=== PATIENT | female | born 1985 | race Two or more races ===

== ENCOUNTER 2018-06-25 11:00 | Emergency (ER) | payer OTHER ==
[2018-06-25 11:12] VITALS: BP 107/65; PULSE 82; TEMP 98.1; BMI 21.6
[2018-06-25] MEDS ORDERED: CYCLOBENZAPRINE HCL 10 MG TABLET (FP) PO ONE (11:47)
[2018-06-25] MEDS ORDERED: CYCLOBENZAPRINE HCL 10 MG TABLET (FP) ONE (11:51)
--- NOTE | 2018-06-25 12:02 | PDOC ---
History of Present Illness - General Chief Complaint: Back Pain Stated Complaint: BACK PAIN History Source: Patient Exam Limitations: No Limitations - History of Present Illness Initial Comments: 06/25/18 11:43 Patient is a 32 year old female with past complaining lower back pain x 2 days. States she then over to pick some of her car, not a heavy object , and develop sudden onset of pain across the lower back which has been persistent, burning, nonradiating, constant 10/10 since. Denies any bowel or bladder incontinence, numbness or tingling in the legs. No prior history of this type of pain, no injury States unable to sleep due to the pain. States about 1 hour ago took Naproxen and a muscle relaxant without relief. Deneis nausea, vomiting, dysuria PMD: Dr. Rodas PMHX: as above PSOCHX: neg etoh, drug, cig ALL: NKDA GENERAL/CONSTITUTIONAL: [No fever or chills. No weakness. No weight change.] HEAD, EYES, EARS, NOSE AND THROAT: [No change in vision. No ear pain or discharge. No sore throat.] CARDIOVASCULAR: [No chest pain or shortness of breath.] RESPIRATORY: [No cough, wheezing, or hemoptysis.] GASTROINTESTINAL: [No nausea, vomiting, diarrhea or constipation. No rectal bleeding.] GENITOURINARY: [No dysuria, frequency, or change in urination.] MUSCULOSKELETAL: [No joint or muscle swelling or pain. No neck, (+) back pain.] SKIN AND BREASTS: [No rash or easy bruising.] NEUROLOGIC: [No headache, vertigo, loss of consciousness, or loss of sensation.] PSYCHIATRIC: [No depression or anxiety.] ENDOCRINE: [No increased thirst. No abnormal weight change.] HEMATOLOGIC/LYMPHATIC: [No anemia, easy bleeding, or history of blood clots.] ALLERGIC/IMMUNOLOGIC: [No hives or skin allergy. No latex allergy.] GENERAL: [The patient is awake, alert, and fully oriented, in no acute distress. ] HEAD: [Normal with no signs of trauma.] EYES: [Pupils equal, round and reactive to light, extraocular movements intact, sclera anicteric, conjunctiva clear.] ENT: [Ears normal, nares patent, oropharynx clear without exudates. Moist mucous membranes.] NECK: [Normal range of motion, supple without lymphadenopathy, JVD, or masses.] LUNGS: [Breath sounds equal, clear to auscultation bilaterally. No wheezes, and no crackles.] HEART: [Regular rate and rhythm, normal S1 and S2 without murmur, rub.] ABDOMEN: [Soft, nontender, normoactive bowel sounds. No guarding, no rebound. No masses.] BACK: tenderness mid line spine and b/l paraspinal EXTREMITIES: [Normal range of motion, no edema. No clubbing or cyanosis. No cords, erythema, or tenderness.] NEUROLOGICAL: [Cranial nerves II through XII grossly intact. Normal speech, normal gait.] PSYCH: [Normal mood, normal affect.] SKIN: [Warm, Dry, normal turgor, no rashes or lesions noted.] Past History - Past Medical History Allergies/Adverse Reactions: Allergies Allergy/AdvReac Type Severity Reaction Status Date / Time No Known Allergies Allergy Verified 06/25/18 11:13 Home Medications: Ambulatory Orders Cephalexin [Keflex] 500 mg PO TID #7 capsule 06/25/18 Oxycodone HCl/Acetaminophen [Percocet 5/325 -] 1 tab PO Q4H #10 tablet MDD 6 08/12 Asthma: No Cancer: No Cardiac Disorders: No COPD: No Diabetes: No HTN: No Seizures: No Thyroid Disease: No - Suicide/Smoking/Psychosocial Hx Smoking Status: No Smoking History: Never smoked Have you smoked in the past 12 months: No Number of Cigarettes Smoked Daily: 0 Hx Alcohol Use: No Drug/Substance Use Hx: No Substance Use Type: None Hx Substance Use Treatment: No *Physical Exam - Vital Signs Last Vital Signs Temp Pulse Resp BP Pulse Ox 98.1 F 82 17 107/65 97 06/25/18 11:11 06/25/18 11:11 06/25/18 11:11 06/25/18 11:11 06/25/18 11:11 Moderate Sedation - Procedure Monitoring Vital Signs: Procedure Monitoring Vital Signs Temperature 98.1 F 06/25/18 11:11 Pulse Rate 82 06/25/18 11:11 Respiratory Rate 17 06/25/18 11:11 Blood Pressure 107/65 06/25/18 11:11 O2 Sat by Pulse Oximetry (%) 97 06/25/18 11:11 Medical Decision Making - Medical Decision Making 06/25/18 11:43 Patient is a 32 year old female with past complaining lower back pain x 2 days. DDX: uti, back strain, lumbar spine, UA, urine preg percocet labs reviewed noted to have 73 wbc consistent with UTI lumbar xray neg for acute process Keflex 500mg po given 1300 Patient states pain is improved with percocet now 11/02 I discussed the physical exam findings, ancillary test results and final diagnoses with the patient. I answered all of the patient's questions. The patient was satisfied with the care received and felt comfortable with the discharge plan and treatment plan. The Patient agrees to follow up with the primary care physician within 24-72 hours. *DC/Admit/Observation/Transfer Diagnosis at time of Disposition: UTI (urinary tract infection) Qualifiers: Urinary tract infection type: site unspecified Hematuria presence: with hematuria Qualified Code(s): N39.0 - Urinary tract infection, site not specified - Discharge Dispostion Disposition: HOME Condition at time of disposition: Stable - Prescriptions Prescriptions: Cephalexin [Keflex] 500 mg PO TID #7 capsule Oxycodone HCl/Acetaminophen [Percocet 5/325 -] 1 tab PO Q4H #10 tablet MDD 6 - Referrals Referrals: Tashi Rodas MD [Primary Care Provider] - - Patient Instructions Printed Discharge Instructions: DI for Urinary Tract Infection (UTI) Additional Instructions: Your Discharge Instructions: You must call primary care physician within 24 hours to arrange follow-up. Return to the Emergency Department with any new, persistent or worsening symptoms, for fever, chills, SOB, dizziness or any other concerning changes that may occur. - Post Discharge Activity
[2018-06-25 12:21] LABS: URINE APPEARANCE SLCLOUDY; URINE BILIRUBIN NEGATIVE (<2.0 mg/dL); URINE COLOR STRAW; URINE GLUCOSE (UA) NEGATIVE (NEGATIVE); URINE KETONE NEGATIVE (NEGATIVE); URINE LEUK ESTERASE 3+ (NEGATIVE); URINE NITRITE NEGATIVE (NEGATIVE); URINE PROTEIN NEGATIVE (NEGATIVE); URINE UROBILINOGEN NEGATIVE mg/dL (0.2-1.0)
[2018-06-25 12:28] LABS: EPI CELLS RARE /HPF (FEW); URINE BACTERIA RARE /hpf (NONE SEEN); URINE MUCUS RARE
[2018-06-25] MEDS ORDERED: CEPHALEXIN MONOHYDRATE 500 MG CAPSULE (UD) PO ONE (12:51)
[2018-06-25] MEDS ORDERED: CEPHALEXIN MONOHYDRATE 500 MG CAPSULE (UD) ONE (13:09)
== END 2018-06-25 13:24 | disposition home or self-care (01) ==
LOC: JERFT 11:00
DX: N39.0 Urinary tract infection, site not specified (principal)
CPT/HCPCS: 72100-TC-FY; 81003; 81015; 84703; 87086; 99281-25

== ENCOUNTER 2018-11-13 12:43 | Emergency (ER) | payer OTHER ==
[2018-11-13 12:54] VITALS: BMI 22.1
--- NOTE | 2018-11-13 12:56 | PDOC ---
History of Present Illness - General Chief Complaint: Vaginal Bleeding Stated Complaint: VAGINAL BLEED 13WKS PRG Time Seen by Provider: 11/13/18 12:55 History Source: Patient - History of Present Illness Initial Comments: 11/13/18 13:15 The patient is a 32 year old female at a self reported 13 weeks gestation with no reported significant PMH who presents to our ED c/o vaginal bleeding. States she first noted blood on the toilet paper last night when she urinated and again this morning. No associated abdominal cramping, dysuria, fevers/ chills. Ultrasound with no abnormal findings last week. Follows with Dr. Ko. H/o five pregnancies, with 2 SAB. The patient denies chest pain, shortness of breath, abdominal pain, nausea/ vomiting, diarrhea/constipation, fevers/chills. NKDA Surgical: C/S x3 OB-Line Supply: Dr. Ko Past History - Past Medical History Allergies/Adverse Reactions: Allergies Allergy/AdvReac Type Severity Reaction Status Date / Time No Known Allergies Allergy Verified 11/13/18 12:48 Home Medications: Ambulatory Orders NK [No Known Home Medication] 11/13/18 Asthma: No Cancer: No Cardiac Disorders: No COPD: No Diabetes: No HTN: No Seizures: No Thyroid Disease: No - Suicide/Smoking/Psychosocial Hx Smoking Status: No Smoking History: Never smoked Have you smoked in the past 12 months: No Number of Cigarettes Smoked Daily: 0 Hx Alcohol Use: No Drug/Substance Use Hx: No Substance Use Type: None Hx Substance Use Treatment: No Review of Systems - Review of Systems Constitutional: No: Chills, Fever HEENTM: No: Recent change in vision Respiratory: No: Cough, Shortness of Breath Cardiac (ROS): No: Chest Pain, Lightheadedness, Palpitations, Syncope ABD/GI: No: Constipated, Diarrhea, Nausea, Vomiting : Yes: Other (vaginal bleeding). No: Burning, Dysuria *Physical Exam - Vital Signs Last Vital Signs Temp Pulse Resp BP Pulse Ox 97.9 F 82 16 100/60 99 11/13/18 12:46 11/13/18 12:46 11/13/18 12:46 11/13/18 12:46 11/13/18 12:46 - Physical Exam General Appearance: Yes: Nourished, Appropriately Dressed HEENT: positive: Normal Voice, Hearing Grossly Normal Neck: positive: Trachea midline, Supple Respiratory/Chest: positive: Lungs Clear, Normal Breath Sounds Cardiovascular: positive: S1, S2. negative: Edema, Murmur Vascular Pulses: Dorsalis-Pedis (R): 2+, Doralis-Pedis (L): 2+ Female Pelvic Exam: positive: other (dark red blood in vaginal vault - unable to visualize cervical os because of active bleed) Gastrointestinal/Abdominal: positive: Soft. negative: Distended, Guarding, Rebound, Tenderness, Hernia, Mass Musculoskeletal: negative: CVA Tenderness (R), CVA Tenderness (L) Extremity: positive: Normal Capillary Refill, Normal Inspection Integumentary: positive: Normal Color, Dry, Warm Neurologic: positive: Fully Oriented, Alert ED Treatment Course - LABORATORY CBC & Chemistry Diagram: 11/13/18 14:00 Medical Decision Making - Medical Decision Making 11/13/18 13:52 32 year old female at a self reported 13 weeks gestation with vaginal bleeding. H/o multiple spontaneous abortions. VS unremarkable. Frontal diagnosis: SAB/ Threatened AB, also consider ectopic or ovarian cyst hemmorhage though the latter are less likely. Will obtain bedside US, CBC to evaluate for anemia, check urine for proteinuria. Previous C/S in our institution with Type O Positive - no need to evaluate for [place]. 11/13/18 14:06 Bedside U/S shows IUP with FHR 130's, no subchorionic hemmorhage Labs, UA pendning 11/13/18 16:35 B-HCG c/w 5+ plus Hb 13.2 UA negative for proteinuria - diff pending Patient requesting d/c home. As VSS stable, no active medical emergency, will discharge home. 11/13/18 17:19 Patient contacted by phone - informed of UA results. Counseled again on importance of follow-up evaluation with OB[facility]Line Supply. Clinical Impression: Threatened AB I discussed the physical exam findings, ancillary test results and final diagnoses with the patient. I answered all of the patient's questions. The patient was satisfied with the care received and felt comfortable with the discharge plan and treatment plan. The patient will return to the Emergency Department with any new, persistent or worsening symptoms. *DC/Admit/Observation/Transfer Diagnosis at time of Disposition: Vaginal bleeding - Discharge Dispostion Disposition: HOME Condition at time of disposition: Good Decision to Admit order: No - Referrals Referrals: Mert Banda MD [Primary Care Provider] - - Patient Instructions Printed Discharge Instructions: Threatened Additional Instructions: no intercourse or anything per vagina until bleeding stops. take it easy follow up with your agriscience instructor as scheduled. return for any pain, dizziness or any concerns. your ultrasound shows a live intrauterine today with a normal heart rate and visualized movement. - Post Discharge Activity Forms/Work/School Notes: Back to Work
[2018-11-13] MEDS ORDERED: SODIUM CHLORIDE 0.9% 500 ML INFUS.BAG IV ONE (13:03)
[2018-11-13] MEDS ORDERED: ONDANSETRON 4 MG/2 ML VIAL ONE (14:11)
--- NOTE | 2018-11-13 14:12 | PDOC ---
Attending Attestation - Resident Resident Name: Evette Hilton - ED Attending Attestation I have performed the following: I have examined & evaluated the patient, The case was reviewed & discussed with the resident, I agree w/resident's findings & plan, Exceptions are as noted - HPI HPI: 11/13/18 14:07 32 yo ( 2 prior miscarriages ) here with approx 13 weeks , here with co vaginal bleeding. no c/o lower abd pain. bleeding bright red, noted when wiping. started last night. noted todya while urinating. no f/c follows with dr Hayden - Physicial Exam PE: 11/13/18 14:09 awake alert lungs clear bilatearlly heart rrr no mrg abd soft nontendern nondistended. ext wwp. ( pelvic performed by dr hilton). - Medical Decision Making 11/13/18 14:10 32 yo 13 weeks with vaginal bleeding. differential ectopic less likley prior us shows iup per pt, threatened vs. incomplete ab. plan focused ED us trans-abdominal focused ED ultrasound trans abdominal, indication vag bleeding. evaluate well being. uterus scanned in two planes. heart rate 132 bpm, movement noted. placenta noted, no subchorionic hemorrhage. impression: live IUP fhr 132 bpm. 11/13/18 16:03 11/13/18 16:03 ua negative for uti. will dc home fu with dr. hayden this week. has appt scheduled 3 days from today.
[2018-11-13 14:16] LABS: BASO % 0.3 % (0-2.0); EOS % 3.8 % (0-4.5); HEMATOCRIT 38.4 % (32.4-45.2); HEMOGLOBIN 13.2 GM/dL (10.7-15.3); LYMPH % 24.2 % (8-40); MCH 28.4 pg (25.7-33.7); MCHC 34.3 g/dl (32.0-36.0); MEAN CELL VOLUME 82.9 fl (80-96); MEAN PLT VOLUME 8.4 fl (7.5-11.1); MONO % 7.2 % (3.8-10.2); NEUT % 64.5 % (42.8-82.8); PLATELET COUNT 199 K/MM3 (134-434); RBC 4.63 M/mm3 (3.60-5.2); RDW 13.3 % (11.6-15.6); WHITE BLOOD COUNT 9.6 K/mm3 (4.0-10.0)
[2018-11-13] MEDS ORDERED: ACETAMINOPHEN 650 MG/20.3 ML ORAL SOLUTION (CUPS) ONE (14:46)
[2018-11-13 15:11] LABS: URINE APPEARANCE CLEAR; URINE BILIRUBIN NEGATIVE (NEGATIVE); URINE COLOR YELLOW; URINE GLUCOSE (UA) NEGATIVE (NEGATIVE); URINE KETONE NEGATIVE (NEGATIVE); URINE LEUK ESTERASE NEGATIVE (NEGATIVE); URINE NITRITE NEGATIVE (NEGATIVE); URINE PROTEIN NEGATIVE (NEGATIVE); URINE UROBILINOGEN 0.2 mg/dL (0.2-1.0)
[2018-11-13 15:55] VITALS: BP 117/64; PULSE 68; TEMP 97.7
[2018-11-13 16:16] LABS: URINE RBC 0-3 /hpf (0-4)
[2018-11-13 16:17] LABS: URINE BACTERIA FEW /hpf (NEGATIVE); URINE WBC 0-3 /hpf (0-5)
[2018-11-13] MEDS ORDERED: IBUPROFEN 100 MG/5 ML UNIT DOSE CUPS ONE (16:23)
[2018-11-15 09:41] LABS: ALBUMIN 3.3 g/dl (3.4-5.0); ALK PHOS 52 U/L (45-117); ANION GAP 8 MMOL/L (8-16); BILIRUBIN,TOTAL 0.3 mg/dL (0.2-1); BLOOD UREA NITROGEN 8 mg/dL (7-18); CALCIUM 8.7 mg/dL (8.5-10.1); CHLORIDE 106 mmol/L (98-107); CO2 23 mmol/L (21-32); CREATININE 0.4 mg/dL (0.55-1.3); GLUCOSE,RANDOM 85 mg/dL (74-106); POTASSIUM 3.9 mmol/L (3.5-5.1); SGOT/AST 11 U/L (15-37); SGPT/ALT 15 U/L (13-61); SODIUM 137 mmol/L (136-145); TOT PROT 6.9 g/dl (6.4-8.2)
== END 2018-11-13 16:51 | disposition home or self-care (01) ==
LOC: JER 12:43
PROC: BY49ZZZ Ultrasonography of First Trimester, Single Fetus (ICD-10-PCS; principal; 2018-11-13)
DX: O26.891 Other specified pregnancy related conditions, first trimester (principal); O20.0 Threatened abortion; Z3A.13 13 weeks gestation of pregnancy
CPT/HCPCS: 36415; 76801-TC; 80053; 81003; 81015; 84702; 85025; 99283-25

== ENCOUNTER 2019-05-15 11:50 | Inpatient (IN) | payer OTHER ==
[~2019-05-15 11:50] MED LIST: CITRIC ACID/SODIUM CITRATE 30 ML UNIT-DOSE CUP PO ONE; ELECTROLYTE-148 SOLN 1,000 ML IV ONE; ELECTROLYTE-148 SOLN 1,000 ML IV SCH
[2019-05-15 13:11] VITALS: BMI 26.2
[2019-05-15] MEDS ORDERED: morphine SULFATE/PF 0.5 MG/ML (2cc Syringe - QUVA) ONE (13:47)
[2019-05-15] MEDS ORDERED: PROPOFOL 20 ML ONE (13:48)
--- NOTE | 2019-05-15 13:49 | HP ---
Past Medical History - Primary Care Physician PCP:: Mert Banda - Admission Chief Complaint: 39 weeks, previous c/s , request of repeat c/s, BTL History of Present Illness: 33 yo f g 4 [id number] 39 weeks,with 3 previous c/s , requesting repeat c/s and BTL, aware BTL is permanent, has small failure risks and risks of ectopic . cx clp, vx -3 mi , fhr cat 1, no contraction History Source: Patient Limitations to Obtaining History: No Limitations - Past Medical History ...: 4 ...Para: 3 ...Term: 3 ...: 0 ...Spon : 0 ...Induced : 0 ...Multiple Gestation: 0 ...LMP: 08/06/18 ... Weeks Gestation by Dates: 40.2 ...EDC by Dates: 05/13/19 ...EDC by Sono: 05/20/19 Infectious Disease: Yes: STD's (txed for chalmydia) - Past Surgical History Past Surgical History: Yes: Hx Myomectomy: No Hx Transabdominal Cerclage: No - Smoking History Smoking history: Never smoked Have you smoked in the past 12 months: No Aproximately how many cigarettes per day: 0 - Alcohol/Substance Use Hx Alcohol Use: No - Social History History of Recent Travel: No Home Medications - Allergies Allergies/Adverse Reactions: Allergies Allergy/AdvReac Type Severity Reaction Status Date / Time No Known Allergies Allergy Verified 11/13/18 12:48 - Home Medications Home Medications: Ambulatory Orders Ferrous Sulfate [Iron] 325 mg PO DAILY 04/19/19 Prenat 115/Iron Fum/Folic/Dss [ 19 Tablet] 1 each PO DAILY 04/19/19 Review of Systems - Review of Systems Constitutional: reports: No Symptoms Eyes: reports: No Symptoms HENT: reports: No Symptoms Neck: reports: No Symptoms Cardiovascular: reports: No Symptoms Respiratory: reports: No Symptoms Gastrointestinal: reports: No Symptoms Genitourinary: reports: No Symptoms Breasts: reports: No Symptoms Reported Musculoskeletal: reports: No Symptoms Integumentary: reports: No Symptoms Neurological: reports: No Symptoms Endocrine: reports: No Symptoms Hematology/Lymphatic: reports: No Symptoms Psychiatric: reports: No Symptoms Physical Exam - Maternity Vital Signs: Vital Signs Temperature 98.2 F 05/15/19 12:15 Pulse Rate 84 05/15/19 12:15 Respiratory Rate 20 05/15/19 12:15 Blood Pressure 116/72 05/15/19 12:15 O2 Sat by Pulse Oximetry (%) Constitutional: Yes: Well Nourished, No Distress, Calm Eyes: Yes: WNL, Conjunctiva Clear, EOM Intact HENT: Yes: WNL, Atraumatic, Normocephalic Neck: Yes: WNL, Supple, Trachea Midline Cardiovascular: Yes: WNL, Regular Rate and Rhythm Breast(s): Yes: WNL - Abdominal Exam/OB Fundal Height: 38 Number of Fetuses: Single Presentation: Vertex Contractions: No Intensity: Unaware Monitor Mode: External Heart Rate Location: [facility] Accelerations: Non-Uniform Decelerations: None - Vaginal Exam/OB Vaginal Bleediing: No Speculum Exam: No Dilatation (cm): closed Effacement (%): 0 Amniotic Membrane Status: Intact Presentation: Vertex/Position Station: -3 - Physical Exam Edema: Yes Edema: LLE: Trace, RLE: Trace Deep Tendon Reflex Grade: Normal +2 Psychiatric: Yes: WNL Hemorrhage Risk Assessment - Risk Factors Medium Risk Factors: Yes: Prior , uterine surgery,or multiple laparotomies Risk Score: 1 Risk Level: Medium Risk Problem List - Problems (1) with 39 completed weeks gestation Code(s): Z3A.39 - 39 WEEKS GESTATION OF (2) Previous section complicating Code(s): O34.219 - MATERNAL CARE FOR UNSP TYPE SCAR FROM PREVIOUS DEL (3) Admission for sterilization Code(s): Z30.2 - ENCOUNTER FOR STERILIZATION Assessment/Plan admit for repeat c/s , BTL, risks associated with multiple repeat c/s, bowel, bladder , ureter injury, infection, bleeding , post op complication discussed
[2019-05-15] MEDS ORDERED: SUCCINYLCHOLINE CHLORIDE 200 MG/10 ML SYRINGE ONE (13:54)
[2019-05-15] MEDS ORDERED: LIDO 2%/EPI 1:200000 PRESRVFRE (20 ML SDVIAL) ONE (13:59)
[2019-05-15] MEDS ORDERED: BUPIVACAINE HCL/PF 2.5 MG/ML - 30 ML VIAL IJ ONE (14:05)
[2019-05-15] MEDS ORDERED: ceFAZolin SODIUM 1 GM VIAL ONE (14:35)
[2019-05-15] MEDS ORDERED: OXYTOCIN 10 UNITS/ML VIAL ONE (14:45)
--- NOTE | 2019-05-15 15:35 | PN ---
Progress Note (short form) - Note Progress Note: I assisted Dr. Banda in repeat c/section and tubal sterilization for the ntirety of the case.
[2019-05-15] MEDS ORDERED: OXYTOCIN 20 UNITS in 0.9% NS 20 UNIT/1,000 ML INFUS.BAG IV ONE (15:43)
[2019-05-15] MEDS ORDERED: BENZOCAINE 20% 57 GM BOTTLE TP PRN (16:01)
[2019-05-15] MEDS ORDERED: METHYLERGONOVINE MALEATE 0.2 MG/1 ML AMP IM PRN (16:01)
[2019-05-15] MEDS ORDERED: BENZOCAINE 28 GM HEMORRHOIDAL OINTMENT PR PRN (16:01)
[2019-05-15] MEDS ORDERED: WITCH HAZEL 50% (TUCKS) 40 PAD/JAR PAD TP PRN (16:01)
[2019-05-15] MEDS ORDERED: oxyCODONE HCL 5 MG TABLET PO PRN (16:01)
--- NOTE | 2019-05-15 16:08 | OP ---
Operative Note - Note: Operative Date: 05/15/19 Pre-Operative Diagnosis: 39 weeks, previous c/s , request of repeat c/ s , BTL Operation: repeat LST c/s , BTL Implants: live baby girl 9 , LOP, cord around neck twice Surgeon: Mert Banda Dining Service Supervisor: William Humphreys Anesthesia: Spinal Estimated Blood Loss (mls): 500 Drains & Tubes with Location: baxter Blood Volume Replaced (mls): 0 Operative Report Dictated: Yes
[2019-05-15] MEDS ORDERED: OXYTOCIN 20 UNITS in 0.9% NS 20 UNIT/1,000 ML INFUS.BAG IV SCH (16:15)
[2019-05-15] MEDS ORDERED: DEXTROSE 5%-LACTATED RINGERS 1,000 ML IV SCH (16:15)
[2019-05-15] MEDS ORDERED: IBUPROFEN 800 MG/8 ML IJ IVPB ONE (16:51)
[2019-05-15] MEDS: IBUPROFEN 800 MG/8 ML IJ IVPB PRN ×2 (17:10→22:13)
[2019-05-15] MEDS: CEFAZOLIN 1 GM/D5W 1 GM/50 ML BAG IVPB SCH (21:16)
[2019-05-15] MEDS ORDERED: CEFAZOLIN 1 GM in DEXTROSE 5%-WATER - 50 ML IVPB SCH (22:00)
[2019-05-15] MEDS: diphenhydrAMINE HCL 25 MG CAPSULE (FP) PO PRN (22:19)
[2019-05-16] MEDS: CEFAZOLIN 1 GM/D5W 1 GM/50 ML BAG IVPB SCH (05:02)
--- NOTE | 2019-05-16 07:49 | PN ---
Post Progress Note - Subjective Subjective: Not yet ambulating, tolerating PO, lochia decreased, baby is doing well Post Day: 1 Type of Delivery: Repeat C/S Vital Signs: Vital Signs Temperature 97.4 F L 05/16/19 05:00 Pulse Rate 66 05/16/19 05:00 Respiratory Rate 20 05/16/19 06:00 Blood Pressure 103/63 05/16/19 05:00 O2 Sat by Pulse Oximetry (%) 99 05/15/19 16:30 Breast Exam: Yes: Other (deferred) Uterus: Yes: Fundus Firm Incision: Yes: Dressing dry and intact (removed), [place] intact Abdomen/GI: Yes: Abdomen soft Lochia, amount: Small Extremities: Yes: Calves non-tender Activity: Ambulating, Other (forly in place) Assessment/Plan POD #1 S/P RCS and BTL, stable condition, Baxter and IV in place -Continue PP/post-op care -D/C baxter and IV -Encourage ambulation -F/U AM CBC -Anticipate D/C on POD # 3
[2019-05-16] MEDS: IBUPROFEN 800 MG/8 ML IJ IVPB PRN (08:11)
[2019-05-16] MEDS ORDERED: FLU VACCINE QUAD 60 MCG/0.5 ML (MDV 19-20) IM ONE (10:00)
[2019-05-16] MEDS ORDERED: FLU VACC QS2019-20(6MOS UP)/PF 60 MCG/0.5 ML SYRINGE IM ONE (10:00)
[2019-05-16 10:24] LABS: BASO % 0.4 % (0-2.0); EOS % 0.5 % (0-4.5); HEMATOCRIT 38.6 % (32.4-45.2); HEMOGLOBIN 12.7 GM/dL (10.7-15.3); LYMPH % 14.8 % (8-40); MCH 28.4 pg (25.7-33.7); MCHC 32.9 g/dl (32.0-36.0); MEAN CELL VOLUME 86.1 fl (80-96); MEAN PLT VOLUME 7.8 fl (7.5-11.1); MONO % 6.9 % (3.8-10.2); NEUT % 77.4 % (42.8-82.8); PLATELET COUNT 236 K/MM3 (134-434); RBC 4.48 M/mm3 (3.60-5.2); RDW 14.3 % (11.6-15.6); WHITE BLOOD COUNT 11.7 K/mm3 (4.0-10.0)
[2019-05-16] MEDS: ENOXAPARIN NA (PORCINE) 40 MG/0.4 ML DISP.SYRIN SQ SCH (10:35)
--- NOTE | 2019-05-16 10:40 | PN ---
Progress Note (short form) - Note Progress Note: Anesthesia POD#1 S/P under Spinal A and Duramorph VSS,no N/V,pain is bearable,legs are strong. Kanika Aburto M.D.
[2019-05-16] MEDS: ACETAMINOPHEN 325 MG TABLET (FP) PO PRN ×2 (12:08→20:37)
[2019-05-16] MEDS: IBUPROFEN 600 MG TABLET (FP) PO PRN ×2 (15:09→20:38)
[2019-05-16] MEDS: SIMETHICONE 80 MG TAB.CHEW (FP) PO PRN ×2 (15:09→20:39)
[2019-05-16] MEDS ORDERED: BISACODYL 10 MG SUPP.RECT RC PRN (16:03)
[2019-05-16] MEDS: diphenhydrAMINE HCL 25 MG CAPSULE (FP) PO PRN (20:39)
[2019-05-17] MEDS: ACETAMINOPHEN 325 MG TABLET (FP) PO PRN ×4 (03:46→21:01)
[2019-05-17] MEDS: IBUPROFEN 600 MG TABLET (FP) PO PRN ×4 (03:47→21:01)
--- NOTE | 2019-05-17 08:02 | PN ---
Post Progress Note - Subjective Subjective: c/o pain scale varying from 4-8/10 voiding without difficulty c/o gaseous discomfort Post Day: 2 Type of Delivery: Repeat C/S Vital Signs: Vital Signs Temperature 97.5 F L 05/16/19 20:54 Pulse Rate 67 05/16/19 20:54 Respiratory Rate 20 05/16/19 20:54 Blood Pressure 111/72 05/16/19 20:54 O2 Sat by Pulse Oximetry (%) 99 05/15/19 16:30 Breast Exam: Yes: Soft, Other (Breast & bottle feeding ). No: Engorged Uterus: Yes: Fundus Firm, Fundus below umbilicus, Non-tender Incision: Yes: [place] intact. No: Redness, Oozing Abdomen/GI: Yes: Abdomen soft, Tender (more on rt side of the abdomen ), Passing flatus (bm not done ), Tolerating PO (diet ). No: Abdominal Distention Lochia: Yes: Rubra Lochia, amount: Moderate Extremities: Yes: Calves non-tender Perineum: Yes: Intact Activity: Ambulating - Labs Labs: CBC WBC 11.7 K/mm3 (4.0-10.0) H 05/16/19 09:53 RBC 4.48 M/mm3 (3.60-5.2) 05/16/19 09:53 Hgb 12.7 GM/dL (10.7-15.3) 05/16/19 09:53 Hct 38.6 % (32.4-45.2) 05/16/19 09:53 MCV 86.1 fl (80-96) 05/16/19 09:53 MCH 28.4 pg (25.7-33.7) 05/16/19 09:53 MCHC 32.9 g/dl (32.0-36.0) 05/16/19 09:53 RDW 14.3 % (11.6-15.6) 05/16/19 09:53 Plt Count 236 K/MM3 (134-434) 05/16/19 09:53 MPV 7.8 fl (7.5-11.1) 05/16/19 09:53 Absolute Neuts (auto) 9.1 K/mm3 (1.5-8.0) H 05/16/19 09:53 Neutrophils % 77.4 % (42.8-82.8) 05/16/19 09:53 Lymphocytes % 14.8 % (8-40) D 05/16/19 09:53 Monocytes % 6.9 % (3.8-10.2) 05/16/19 09:53 Eosinophils % 0.5 % (0-4.5) 05/16/19 09:53 Basophils % 0.4 % (0-2.0) 05/16/19 09:53 Nucleated RBC % 0 % (0-0) 05/16/19 09:53 Problem List - Problems (1) Status post section routine follow-up Code(s): Z39.2 - ENCOUNTER FOR ROUTINE FOLLOW-UP; Z98.891 - HISTORY OF UTERINE SCAR FROM PREVIOUS SURGERY Assessment/Plan stable Plan ct po care encourage ambulation pr dulcolax suppository may be helpful for gas discomfort
[2019-05-17] MEDS: SIMETHICONE 80 MG TAB.CHEW (FP) PO PRN ×3 (08:07→21:01)
[2019-05-17] MEDS: ENOXAPARIN NA (PORCINE) 40 MG/0.4 ML DISP.SYRIN SQ SCH (10:52)
[2019-05-17] MEDS: oxyCODONE HCL 5 MG TABLET PO PRN ×2 (21:02→23:41)
[2019-05-17] MEDS: SENNOSIDES/DOCUSATE COMBO (SENNA PLUS) TABLET (UD) PO PRN (21:04)
[2019-05-18] MEDS: ACETAMINOPHEN 325 MG TABLET (FP) PO PRN ×5 (01:30→22:23)
[2019-05-18] MEDS: oxyCODONE HCL 5 MG TABLET PO PRN (01:31)
[2019-05-18] MEDS: IBUPROFEN 600 MG TABLET (FP) PO PRN ×5 (01:31→22:25)
--- NOTE | 2019-05-18 06:52 | PN ---
Post Progress Note - Subjective Subjective: Pain controlled. No fevers/chills. No N/V. +flatus. Ambulating without difficulty Post Day: 3 Type of Delivery: Repeat C/S Vital Signs: Vital Signs Temperature 97.5 F L 05/17/19 21:06 Pulse Rate 64 05/17/19 21:06 Respiratory Rate 18 05/17/19 21:06 Blood Pressure 109/69 05/17/19 21:06 O2 Sat by Pulse Oximetry (%) 99 05/15/19 16:30 Uterus: Yes: Fundus below umbilicus Incision: Yes: Dressing dry and intact, [place]my[place] intact Abdomen/GI: Yes: Abdomen soft, Tolerating PO Lochia: Yes: Rubra Lochia, amount: Small Extremities: Yes: Calves non-tender Perineum: Yes: Intact Activity: Ambulating - Labs Labs: CBC WBC 11.7 K/mm3 (4.0-10.0) H 05/16/19 09:53 RBC 4.48 M/mm3 (3.60-5.2) 05/16/19 09:53 Hgb 12.7 GM/dL (10.7-15.3) 05/16/19 09:53 Hct 38.6 % (32.4-45.2) 05/16/19 09:53 MCV 86.1 fl (80-96) 05/16/19 09:53 MCH 28.4 pg (25.7-33.7) 05/16/19 09:53 MCHC 32.9 g/dl (32.0-36.0) 05/16/19 09:53 RDW 14.3 % (11.6-15.6) 05/16/19 09:53 Plt Count 236 K/MM3 (134-434) 05/16/19 09:53 MPV 7.8 fl (7.5-11.1) 05/16/19 09:53 Absolute Neuts (auto) 9.1 K/mm3 (1.5-8.0) H 05/16/19 09:53 Neutrophils % 77.4 % (42.8-82.8) 05/16/19 09:53 Lymphocytes % 14.8 % (8-40) D 05/16/19 09:53 Monocytes % 6.9 % (3.8-10.2) 05/16/19 09:53 Eosinophils % 0.5 % (0-4.5) 05/16/19 09:53 Basophils % 0.4 % (0-2.0) 05/16/19 09:53 Nucleated RBC % 0 % (0-0) 05/16/19 09:53 Assessment/Plan 33yo s/p PLTCS, BTL, POD#3 Routine PP care PO pain control Labs reviewed D/C to home POD#4 Yolis Mcintyre MD
[2019-05-18 07:52] LABS: BASO % 0.4 % (0-2.0); EOS % 2.4 % (0-4.5); HEMATOCRIT 35.1 % (32.4-45.2); HEMOGLOBIN 11.9 GM/dL (10.7-15.3); LYMPH % 24.9 % (8-40); MCH 28.8 pg (25.7-33.7); MCHC 33.9 g/dl (32.0-36.0); MEAN PLT VOLUME 7.9 fl (7.5-11.1); MONO % 8.1 % (3.8-10.2); NEUT % 64.2 % (42.8-82.8); PLATELET COUNT 240 K/MM3 (134-434); RBC 4.13 M/mm3 (3.60-5.2); RDW 13.9 % (11.6-15.6); WHITE BLOOD COUNT 9.6 K/mm3 (4.0-10.0)
[2019-05-18] MEDS: ENOXAPARIN NA (PORCINE) 40 MG/0.4 ML DISP.SYRIN SQ SCH (10:39)
[2019-05-18] MEDS: SIMETHICONE 80 MG TAB.CHEW (FP) PO PRN ×2 (13:11→22:23)
[2019-05-18] MEDS: SENNOSIDES/DOCUSATE COMBO (SENNA PLUS) TABLET (UD) PO PRN (22:23)
[2019-05-19] MEDS: SIMETHICONE 80 MG TAB.CHEW (FP) PO PRN ×3 (02:09→11:03)
[2019-05-19] MEDS: ACETAMINOPHEN 325 MG TABLET (FP) PO PRN ×3 (02:09→11:03)
[2019-05-19] MEDS: IBUPROFEN 600 MG TABLET (FP) PO PRN ×3 (02:09→11:02)
--- NOTE | 2019-05-19 07:11 | DS ---
Physical Exam-WINDOW MAKER Vital Signs: Vital Signs Temperature 98.1 F 05/18/19 22:00 Pulse Rate 76 05/18/19 22:00 Respiratory Rate 18 05/18/19 22:00 Blood Pressure 125/74 05/18/19 22:00 O2 Sat by Pulse Oximetry (%) 99 05/15/19 16:30 Constitutional: Yes: Well Nourished, No Distress, Calm Eyes: Yes: WNL, Conjunctiva Clear, EOM Intact HENT: Yes: WNL, Atraumatic, Normocephalic Neck: Yes: WNL, Supple, Trachea Midline Cardiovascular: Yes: WNL, Regular Rate and Rhythm Respiratory: Yes: WNL, Regular, CTA Bilaterally Gastrointestinal: Yes: WNL ...Rectal Exam: Yes: WNL Renal/: Yes: WNL ....Post : Yes: Uterus firm, Uterus non-tender, Slight lochia rubra Breast(s): Yes: WNL Musculoskeletal: Yes: WNL Extremities: Yes: WNL Edema: LLE: Trace, RLE: Trace Integumentary: Yes: WNL Wound/Incision: Yes: Clean/Dry, Well Approximated, [place] Intact Neurological: Yes: WNL, Alert, Oriented ...Motor Strength: WNL Psychiatric: Yes: WNL, Alert, Oriented Labs: CBC, BMP 05/18/19 07:00 Delivery - Delivery Section: Repeat, Low Flap Transverse (no complication) Type of Anesthesia: Spinal Episiotomy/Laceration: None EBL (cc): 500 Delivery, Single - Stages of Labor Date of Delivery: 05/15/19 Time of Delivery: 14:48 Time Placenta Delivered: 14:49 Placenta: Yes: Expressed - Condition of Lead Ios Developer/Anesthesiologist Assistant Certified Present: Yes Name: Patricia Stephens Gender: Female Weight: 8 lb 4 oz Position: Left, OP Total Hours ROM (Hrs/Mins): 2 MIN - 1 Minute Total Score: 9 5 Minutes Total Score: 9 - Feeding Plan Initial Plan: Exclusive throughout hospitalization Remarks - Remarks Remarks: 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 , 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 Discharge Summary Problems reviewed: Yes Reason For Visit: REPEAT Current Active Problems Admission for sterilization (Acute) with 39 completed weeks gestation (Acute) Previous section complicating (Acute) Status post section routine follow-up (Acute) Procedures: Principal: repeat c/s, BTL Hospital Course: no complication Condition: Stable - Instructions Diet, Activity, Other Instructions: Regular Diet Follow up in 4 weeks Referrals: Mert Banda MD [Staff Physician] - Disposition: HOME - Home Medications Comprehensive Discharge Medication List: Ambulatory Orders Ferrous Sulfate [Iron] 325 mg PO DAILY 04/19/19 Prenat 115/Iron Fum/Folic/Dss [ 19 Tablet] 1 each PO DAILY 04/19/19 Amoxicillin/Potassium Clav [Augmentin 875-125 Tablet] 1 each PO BID 7 Days #17 tablet 05/18/19 Ibuprofen 600 mg PO Q6H PRN #30 tablet 05/18/19
[2019-05-19] MEDS: ENOXAPARIN NA (PORCINE) 40 MG/0.4 ML DISP.SYRIN SQ SCH (09:31)
[2019-05-19 12:13] VITALS: BP 112/71; PULSE 65; TEMP 97.7
--- NOTE | 2019-05-23 18:22 | PATH ---
Surgical Pathology Report Patient Name: IVON DILLARD [facility]. Rec. #: [id number] /Age/Gender: 1985 (Age: 33) / F Account: [id number] Location: [facility] OBS/JOB RECRUITER Taken: 05/15/2019 Received: 05/16/2019 Reported: 05/23/2019 Physicians: Mert Banda M.D. Specimen(s) Received A: PLACENTA B: RIGHT PORTION FALLOPIAN TUBE C: LEFT PORTION FALLOPIAN TUBE Clinical History 10/05, 06/08, 01/08 Final Diagnosis A. PLACENTA: THIRD TRIMESTER PLACENTA. TRIVASCULAR CORD. MEMBRANES WITH NO DIAGNOSTIC ABNORMALITIES. B. RIGHT PORTION OF FALLOPIAN TUBE: COMPLETE CROSS SECTION OF THE FALLOPIAN TUBE LUMEN IDENTIFIED. C. LEFT PORTION OF FALLOPIAN TUBE: COMPLETE CROSS SECTION OF THE FALLOPIAN TUBE LUMEN IDENTIFIED. Electronically Signed Jian Rodríguez M.D. Gross Description A. The specimen is received fresh labeled placenta and is a 515 gram, 17.0 x 14.5 x 3.4 cm. placenta with attached membranes and umbilical cord. The attached membranes are gar, translucent with focal opacities and insert marginally. The umbilical cord measures 60 cm. in length and averages 1.2 cm. in diameter. The cord inserts eccentrically, 1 cm. to the nearest margin. No true knots or strictures are identified. Cut surface of the umbilical cord reveals 3 vessels. The surface is lockett blue with abundant fibrin deposition and appropriate caliber vessels. The maternal surface is red-brown with focal defects. Sectioning reveals red-brown, spongy parenchyma. No lesions are identified. [employer] sections are submitted in three cassettes as follows: 1- membrane rolls and umbilical cord; 2-3- full thickness sections of placenta. B. Received in formalin labeled "right portion of fallopian tube," is a 2 cm in length fimbriated fallopian tube. The outer surface is gar-rhodes and smooth. Sectioning reveals an unremarkable lumen. [employer] sections are submitted in 2 cassettes as follows: 1-fimbria; 2-cross sections of fallopian tube. C. Received in formalin labeled "left portion of fallopian tube," is a 1.4 cm in length portion of fallopian tube. No fimbria are present. The outer surface is gar-rhodes and smooth. Sectioning reveals an unremarkable lumen. [employer] sections are submitted in one cassette. 05/22/2019 [facility]05/22/2019
== END 2019-05-19 13:30 | disposition home or self-care (01) | DRG 540 ==
LOC: JLDR 11:50 → J3W 17:25
PROVIDERS: ADMIT Obstetrics & Gynecology; ATTEND Obstetrics & Gynecology
PROC: 10D00Z1 Extraction of Products of Conception, Low, Open Approach (ICD-10-PCS; principal; 2019-05-15)
PROC: 0UB70ZZ Excision of Bilateral Fallopian Tubes, Open Approach (ICD-10-PCS; 2019-05-15)
DX: O34.219 Maternal care for unspecified type scar from previous cesarean delivery (principal); Z3A.39 39 weeks gestation of pregnancy; Z37.0 Single live birth; Z30.2 Encounter for sterilization
CPT/HCPCS: 36415; 85025; 88302-TC; 88307-TC; 90686